=== PATIENT | male | born 1975 | race Two or more races ===

== ENCOUNTER 2020-03-19 15:00 | Emergency (ER) | payer MEDICAID ==
[~2020-03-19 15:00] MED LIST: ACET-929 PO; AMLO5TAB15; ASPI-543 PO; BUTA-91 PO; ERGO2000 PO; FENO145T27 OR; GABA300C10 PO; GEMF600T7 PO; IBUP800T24; INSLANTI SC; INSLISPI SC; LISI-711 PO; METF-372 PO; NITR0.4S29 SL; OMEP20CA74 PO; OXYC325T14 PO; SEMA2INJ BC; SIMV20TA90 PO; TAMS1CAP25 PO; TRAM50TA2 PO
[2020-03-19] MEDS ORDERED: SODIUM CHLORIDE 0.9% 1,000 ML IVB ONE (15:45)
[2020-03-19 16:20] LABS: Basophils # (auto) 0 10 ^3/uL (0-0.2); Basophils % (auto) 0.2 % (0.0-2.0); Eosinophils # (auto) 0.1 10 ^3/uL (0-0.8); Eosinophils % (auto) 0.8 % (0.0-7.0); Hematocrit 43.9 % (41.0-53.0); Hemoglobin 14.5 g/dL (13.5-17.5); Lymphocytes # (auto) 1.9 10 ^3/uL (0.4-5.4); Lymphocytes % (auto) 26.7 % (10.0-50.0); Mean Corpuscular Hemoglobin 29.6 pg (28.0-32.0); Mean Corpuscular Hgb Conc. 32.9 g/dL (32.0-36.0); Mean Corpuscular Volume 89.8 fL (80.0-100.0); Monocytes # (auto) 0.6 10 ^3/uL (0-1.3); Neutrophils # (auto) 4.5 10 ^3/uL (1.6-8.6); Neutrophils % (auto) 63.3 % (37.0-80.0); Platelet Count (auto) 202 10^3/uL (140-450); Red Blood Cells 4.89 10^6/uL (4.5-5.90); Red Cell Distribution Width 15.2 % (11.8-14.3); White Blood Cell 7.1 10^3/uL (4.4-10.8)
[2020-03-19 16:32] LABS: Albumin 3.6 g/dL (3.4-5.0); Anion Gap 5 (5-15); Blood Urea Nitrogen 8 mg/dL (7-18); Carbon Dioxide 28 mmol/L (21-32); Chloride 107 mmol/L (98-107); Glucose 91 mg/dL (74-106); Lipase 116 U/L (73-393); Potassium 3.8 mmol/L (3.5-5.1); Sodium 140 mmol/L (136-145)
[2020-03-19 16:37] LABS: Alanine Aminotransferase 21 U/L (16-61); Alkaline Phosphatase 117 U/L (45-117); Aspartate Aminotransferase 12 U/L (15-37); BUN/Creatinine Ratio 12.1; Bilirubin, Total 0.2 mg/dL (0.2-1.0); GFR African American 169 mL/min; GFR Non-African American 140 mL/min; Total Protein 7.1 g/dL (6.4-8.2)
[2020-03-19 16:53] VITALS: BP 125/87
[2020-03-19] MEDS ORDERED: HYDROcodone-ACET 10/325MG TAB PO ONE (17:15)
== END 2020-03-19 17:10 | disposition home or self-care (01) ==
LOC: ER 15:00
DX: N20.0 Calculus of kidney (principal); J45.909 Unspecified asthma, uncomplicated; E11.9 Type 2 diabetes mellitus without complications; K21.9 Gastro-esophageal reflux disease without esophagitis; E78.5 Hyperlipidemia, unspecified; I10 Essential (primary) hypertension; I25.2 Old myocardial infarction
CPT/HCPCS: 36415; 74176; 80053; 83690; 84484; 85025; 96360; 99284; J7030

== ENCOUNTER 2022-05-29 15:44 | Inpatient (IN) | payer MEDICAID ==
[~2022-05-29] VITALS: Ht 167.6 cm; Wt 92.2 kg
[~2022-05-29 15:44] MED LIST changes: +AMLO-489; -AMLO5TAB15; +GEMF-19 PO; -GEMF600T7 PO; -IBUP800T24; +IBUP800T27; +SIMV20TA2 PO; -SIMV20TA90 PO
[2022-05-29] MEDS ORDERED: SODIUM CHLORIDE 0.9% 1,000 ML IV ONE (16:00)
[2022-05-29 16:52] LABS: Basophils # (auto) 0 10 ^3/uL (0-0.2); Basophils % (auto) 0.4 % (0.0-2.0); Eosinophils # (auto) 0 10 ^3/uL (0-0.8); Eosinophils % (auto) 0.8 % (0.0-7.0); Hemoglobin 11.7 g/dL (13.5-17.5); Lymphocytes # (auto) 1.4 10 ^3/uL (0.4-5.4); Lymphocytes % (auto) 27.1 % (10.0-50.0); Mean Corpuscular Hemoglobin 30.1 pg (28.0-32.0); Mean Corpuscular Hgb Conc. 31.6 g/dL (32.0-36.0); Mean Corpuscular Volume 95.5 fL (80.0-100.0); Monocytes # (auto) 0.4 10 ^3/uL (0-1.3); Monocytes % (auto) 7.4 % (0.0-12.0); Neutrophils # (auto) 3.3 10 ^3/uL (1.6-8.6); Neutrophils % (auto) 64.3 % (37.0-80.0); Nucleated Red Blood Cells % 0.1 %; Red Blood Cells 3.88 10^6/uL (4.5-5.90); Red Cell Distribution Width 15.4 % (11.8-14.3); White Blood Cell 5.1 10^3/uL (4.4-10.8)
[2022-05-29 17:12] LABS: Albumin 3.6 g/dL (3.4-5.0); Calcium 8.9 mg/dL (8.5-10.1); Potassium 4.1 mmol/L (3.5-5.1)
[2022-05-29 17:15] LABS: Bilirubin, Total 0.2 mg/dL (0.2-1.0); Total Protein 6.2 g/dL (6.4-8.2)
[2022-05-29] MEDS ORDERED: ACETAMINOPHEN 325 MG TAB PO PRN (21:00)
[2022-05-29] MEDS ORDERED: TEMAZEPAM 15 MG CAP PO PRN (21:00)
[2022-05-29] MEDS ORDERED: LORazepam 0.5 MG TAB PO PRN (21:00)
[2022-05-29] MEDS ORDERED: MAALOX PLUS or MAALOX 30 ML PO PRN (21:00)
[2022-05-29] MEDS ORDERED: DOCUSATE SOD 100 MG CAP PO PRN (21:00)
[2022-05-29 21:18] LABS: Urine Bacteria NONE SEEN /hpf (None Seen); Urine Blood Negative /uL (Negative); Urine Hyaline Cast FEW /lpf (0 - 2); Urine Mucus FEW (None Seen); Urine Specific Gravity 1.018 (1.001-1.035); Urine WBC 2 /hpf (0 - 3)
[2022-05-29] MEDS: HYDROcodone-ACET 5/325MG TAB PO PRN (21:36)
[2022-05-30] MEDS: HYDROcodone-ACET 5/325MG TAB PO PRN ×3 (02:29→14:09)
[2022-05-30] MEDS ORDERED: levETIRAcetam 500 MG/5ML INJ IV ONE (05:40)
[2022-05-30] MEDS: SODIUM CHLORIDE 0.9% 1,000 ML IV SCH ×2 (05:46→13:59)
[2022-05-30] MEDS: MORPHINE SULFATE INJ 2 MG/ml SYRG IV PRN ×3 (05:52→20:51)
[2022-05-30 07:31] LABS: BUN/Creatinine Ratio 23.5; Calcium 8.7 mg/dL (8.5-10.1); Potassium 4.2 mmol/L (3.5-5.1)
[2022-05-30 07:33] LABS: Basophils # (auto) 0 10 ^3/uL (0-0.2); Basophils % (auto) 0.7 % (0.0-2.0); Eosinophils # (auto) 0.1 10 ^3/uL (0-0.8); Eosinophils % (auto) 1.4 % (0.0-7.0); Hematocrit 35.1 % (41.0-53.0); Hemoglobin 11.5 g/dL (13.5-17.5); Lymphocytes # (auto) 1.7 10 ^3/uL (0.4-5.4); Mean Corpuscular Hemoglobin 31.3 pg (28.0-32.0); Mean Corpuscular Hgb Conc. 32.8 g/dL (32.0-36.0); Mean Corpuscular Volume 95.3 fL (80.0-100.0); Monocytes # (auto) 0.4 10 ^3/uL (0-1.3); Monocytes % (auto) 8.8 % (0.0-12.0); Neutrophils # (auto) 2.2 10 ^3/uL (1.6-8.6); Neutrophils % (auto) 50.1 % (37.0-80.0); Nucleated Red Blood Cells % 0.1 %; Red Blood Cells 3.69 10^6/uL (4.5-5.90); Red Cell Distribution Width 15.1 % (11.8-14.3); White Blood Cell 4.3 10^3/uL (4.4-10.8)
[2022-05-30] MEDS ORDERED: DEXTROSE (50%) 50ML SYRG IV ONE (10:30)
[2022-05-30] MEDS ORDERED: DEXTROSE (50%) 50ML SYRG IV PRN (10:45)
[2022-05-30] MEDS ORDERED: LORazepam 2MG/ML-1ML VIAL IV PRN (11:30)
[2022-05-30 12:05] LABS: Cholesterol 153 mg/dL (< 200); HDL Cholesterol 72 mg/dL (40-59); LDL Cholesterol 62 mg/dL (< 100); Triglycerides 156 mg/dL (< 150)
[2022-05-30] MEDS: InsuLIN REG 1unit/0.01ml Soln (100units/ml) SC SCH ×3 (12:50→22:00)
[2022-05-30] MEDS: ACCU-CHEK COMFORT CURVE STRIP VI SCH ×3 (12:51→22:07)
[2022-05-30] MEDS ORDERED: GABAPENTIN 300 MG CAP PO SCH (14:00)
[2022-05-30] MEDS ORDERED: ONDANSETRON ODT 4 MG TAB PO PRN (15:15)
[2022-05-30] MEDS ORDERED: HYDROcodone-ACET 10/325MG TAB PO PRN (15:15)
[2022-05-30] MEDS: METOCLOPRAMIDE HCL 5MG/ml INJ 2ml VIAL IV PRN (15:21)
[2022-05-30] MEDS: INSULIN LANTUS (GLARGINE) 1 /0.01ml (100units/ml) SC SCH (17:35)
[2022-05-30] MEDS: GABAPENTIN 300 MG CAP PO SCH ×2 (17:36→22:07)
[2022-05-30 19:14] LABS: INR 0.99 (0.9-1.15); Partial Thromboplastin Time 27.6 sec (24.6-33.4)
[2022-05-30] MEDS: HYDROcodone-ACET 10/325MG TAB PO PRN (20:52)
[2022-05-30 22:00] VITALS: BP 135/74
[2022-05-30] MEDS: VENLAFAXINE HCL 37.5mg XR cap PO SCH (22:06)
[2022-05-31 00:04] VITALS: BP 135/74
[2022-05-31] MEDS ORDERED: PANT40TA2 PO (00:45)
[2022-05-31 05:00] VITALS: BP 122/71
[2022-05-31] MEDS: GABAPENTIN 300 MG CAP PO SCH ×3 (05:31→22:05)
[2022-05-31] MEDS: SODIUM CHLORIDE 0.9% 1,000 ML IV SCH ×2 (05:31→23:53)
[2022-05-31] MEDS: ACCU-CHEK COMFORT CURVE STRIP VI SCH ×4 (06:43→22:01)
[2022-05-31] MEDS: InsuLIN REG 1unit/0.01ml Soln (100units/ml) SC SCH ×4 (06:44→22:22)
[2022-05-31] MEDS: MORPHINE SULFATE INJ 2 MG/ml SYRG IV PRN ×2 (08:45→13:48)
[2022-05-31 09:00] VITALS: BP 130/69
[2022-05-31] MEDS: ASPirin 81 mg TAB PO SCH (09:06)
[2022-05-31] MEDS: INSULIN LANTUS (GLARGINE) 1 /0.01ml (100units/ml) SC SCH (09:08)
[2022-05-31] MEDS ORDERED: INSULIN LANTUS (GLARGINE) 1 /0.01ml (100units/ml) SC SCH (10:00)
[2022-05-31] MEDS: HYDROcodone-ACET 10/325MG TAB PO PRN (10:45)
[2022-05-31 11:34] LABS: Basophils # (auto) 0 10 ^3/uL (0-0.2); Basophils % (auto) 0.3 % (0.0-2.0); Eosinophils # (auto) 0 10 ^3/uL (0-0.8); Eosinophils % (auto) 0.6 % (0.0-7.0); Hematocrit 32.8 % (41.0-53.0); Hemoglobin 10.5 g/dL (13.5-17.5); Lymphocytes # (auto) 1.4 10 ^3/uL (0.4-5.4); Lymphocytes % (auto) 30.3 % (10.0-50.0); Mean Corpuscular Hemoglobin 30.7 pg (28.0-32.0); Mean Corpuscular Hgb Conc. 32.2 g/dL (32.0-36.0); Mean Corpuscular Volume 95.4 fL (80.0-100.0); Monocytes # (auto) 0.5 10 ^3/uL (0-1.3); Monocytes % (auto) 9.8 % (0.0-12.0); Neutrophils # (auto) 2.8 10 ^3/uL (1.6-8.6); Nucleated Red Blood Cells % 0.2 %; Red Blood Cells 3.43 10^6/uL (4.5-5.90); White Blood Cell 4.8 10^3/uL (4.4-10.8)
[2022-05-31 11:40] LABS: Albumin 3.3 g/dL (3.4-5.0); Calcium 8.6 mg/dL (8.5-10.1)
[2022-05-31 11:45] LABS: BUN/Creatinine Ratio 14.6; Bilirubin, Total 0.3 mg/dL (0.2-1.0); Total Protein 5.7 g/dL (6.4-8.2)
[2022-05-31 13:00] VITALS: BP 133/90
[2022-05-31] MEDS: METOCLOPRAMIDE HCL 5MG/ml INJ 2ml VIAL IV PRN (13:48)
[2022-05-31] MEDS ORDERED: LIDOCAINE 1% (LOCAL ANESTH.) PF 5ml SDV ID ONE (17:15)
[2022-05-31] MEDS: ONDANSETRON HCL 4 MG/2 ML VIAL IV PRN (18:51)
[2022-05-31] MEDS: traMADol HCL 50 MG TAB PO PRN (18:51)
[2022-05-31 22:00] VITALS: BP 136/81
[2022-05-31] MEDS: SODIUM CHLOR 0.9% PF (SALINE LOCK) 10ML VIAL/SYR IV SCH (22:01)
[2022-05-31] MEDS: VENLAFAXINE HCL 37.5mg XR cap PO SCH (22:05)
[2022-06-01 05:00] VITALS: BP 128/86
[2022-06-01] MEDS: GABAPENTIN 300 MG CAP PO SCH ×2 (06:42→13:34)
[2022-06-01] MEDS: InsuLIN REG 1unit/0.01ml Soln (100units/ml) SC SCH ×3 (06:48→17:56)
[2022-06-01] MEDS: ACCU-CHEK COMFORT CURVE STRIP VI SCH ×3 (06:48→17:56)
[2022-06-01 07:24] LABS: Basophils # (auto) 0 10 ^3/uL (0-0.2); Basophils % (auto) 0.4 % (0.0-2.0); Eosinophils # (auto) 0.1 10 ^3/uL (0-0.8); Eosinophils % (auto) 1.3 % (0.0-7.0); Hemoglobin 10.9 g/dL (13.5-17.5); Lymphocytes # (auto) 1.6 10 ^3/uL (0.4-5.4); Lymphocytes % (auto) 32.4 % (10.0-50.0); Mean Corpuscular Hemoglobin 31.3 pg (28.0-32.0); Mean Corpuscular Hgb Conc. 33.1 g/dL (32.0-36.0); Mean Corpuscular Volume 94.4 fL (80.0-100.0); Monocytes # (auto) 0.5 10 ^3/uL (0-1.3); Monocytes % (auto) 10.5 % (0.0-12.0); Neutrophils # (auto) 2.7 10 ^3/uL (1.6-8.6); Neutrophils % (auto) 55.4 % (37.0-80.0); Nucleated Red Blood Cells % 0.1 %; Red Cell Distribution Width 15.2 % (11.8-14.3); White Blood Cell 4.9 10^3/uL (4.4-10.8)
[2022-06-01 07:40] LABS: Albumin 3.3 g/dL (3.4-5.0); Calcium 8.7 mg/dL (8.5-10.1); Potassium 4.4 mmol/L (3.5-5.1)
[2022-06-01 07:46] LABS: BUN/Creatinine Ratio 13.5; Bilirubin, Total 0.3 mg/dL (0.2-1.0); Total Protein 5.5 g/dL (6.4-8.2)
[2022-06-01 09:00] VITALS: BP 137/87
[2022-06-01] MEDS: ONDANSETRON HCL 4 MG/2 ML VIAL IV PRN ×2 (09:01→13:36)
[2022-06-01] MEDS: HYDROcodone-ACET 10/325MG TAB PO PRN (09:01)
[2022-06-01] MEDS: ASPirin 81 mg TAB PO SCH (09:59)
[2022-06-01] MEDS: MORPHINE SULFATE INJ 2 MG/ml SYRG IV PRN (09:59)
[2022-06-01] MEDS: INSULIN LANTUS (GLARGINE) 1 /0.01ml (100units/ml) SC SCH (10:00)
[2022-06-01] MEDS: SODIUM CHLOR 0.9% PF (SALINE LOCK) 10ML VIAL/SYR IV SCH (10:00)
[2022-06-01 13:00] VITALS: BP 131/91
[2022-06-01] MEDS ORDERED: PANTOPRAZOLE 40 MG TAB PO ONE (13:15)
[2022-06-01] MEDS: traMADol HCL 50 MG TAB PO PRN (13:35)
[2022-06-01] MEDS: SODIUM CHLORIDE 0.9% 1,000 ML IV SCH (15:40)
[2022-06-01 16:48] VITALS: BP 151/100
[2022-06-02] MEDS ORDERED: PANTOPRAZOLE 40 MG TAB PO SCH (10:00)
== END 2022-06-01 18:16 | disposition home or self-care (01) | DRG 206 ==
LOC: ER 15:44 → OVERFLOW 21:05 → WEST WING 05-30 21:33
PROVIDERS: ADMIT Hospitalist; ATTEND Student in an Organized Health Care Education/Training Program
PROC: 05HY33Z Insertion of Infusion Device into Upper Vein, Percutaneous Approach (ICD-10-PCS; principal; 2022-05-31)
PROC: B54NZZA Ultrasonography of Left Upper Extremity Veins, Guidance (ICD-10-PCS; 2022-05-31)
DX: T82.514A Breakdown (mechanical) of infusion catheter, initial encounter (principal); E44.0 Moderate protein-calorie malnutrition; E11.43 Type 2 diabetes mellitus with diabetic autonomic (poly)neuropathy; K31.84 Gastroparesis; E87.1 Hypo-osmolality and hyponatremia; I69.354 Hemiplegia and hemiparesis following cerebral infarction affecting left non-dominant side; N20.0 Calculus of kidney; G40.909 Epilepsy, unspecified, not intractable, without status epilepticus; Z20.822 Contact with and (suspected) exposure to COVID-19; F17.200 Nicotine dependence, unspecified, uncomplicated; Y71.2 Prosthetic and other implants, materials and accessory cardiovascular devices associated with adverse incidents; Z68.28 Body mass index [BMI] 28.0-28.9, adult; I25.2 Old myocardial infarction; Y92.89 Other specified places as the place of occurrence of the external cause; Z79.899 Other long term (current) drug therapy; Z87.11 Personal history of peptic ulcer disease; Z93.1 Gastrostomy status; Z83.3 Family history of diabetes mellitus; Z82.49 Family history of ischemic heart disease and other diseases of the circulatory system; Z79.82 Long term (current) use of aspirin; Z82.3 Family history of stroke; I25.10 Atherosclerotic heart disease of native coronary artery without angina pectoris; I10 Essential (primary) hypertension; J45.909 Unspecified asthma, uncomplicated; E78.5 Hyperlipidemia, unspecified
CPT/HCPCS: 36415; 36569; 70450; 74176; 80048; 80053; 80061; 81001; 82962; 83690; 84484; 85025; 85610; 85730; 87426; 93005; 95819; 96360; G0378; J1815; J2405; J7060; Q0162

== ENCOUNTER 2022-07-24 10:24 | Emergency (ER) | payer MEDICAID ==
[~2022-07-24] VITALS: Ht 167.6 cm; Wt 90.0 kg
[~2022-07-24 10:24] MED LIST changes: +FURO1TAB31 PO; +LEVE100S9 GT; +OCTR50IN IJ; +PANT40TA2 PO; +VENL75CA3 PO; +[UNRECOGNIZED DRUG - CODE] IV
[2022-07-24 10:54] VITALS: BP 129/66
== END 2022-07-24 17:01 | disposition home or self-care (01) ==
LOC: ER 10:24 → EDBD 10:24 → ER 17:01
DX: R10.12 Left upper quadrant pain (principal); I10 Essential (primary) hypertension; I25.2 Old myocardial infarction; E11.9 Type 2 diabetes mellitus without complications; E78.5 Hyperlipidemia, unspecified; K21.9 Gastro-esophageal reflux disease without esophagitis; J45.909 Unspecified asthma, uncomplicated; Z79.4 Long term (current) use of insulin; Z79.1 Long term (current) use of non-steroidal anti-inflammatories (NSAID); Z79.899 Other long term (current) drug therapy; Z79.82 Long term (current) use of aspirin

== ENCOUNTER 2022-08-21 15:15 | Emergency (ER) | payer MEDICAID ==
[~2022-08-21] VITALS: Ht 167.6 cm; Wt 98.0 kg
[2022-08-21 15:32] VITALS: BP 125/75
[2022-08-21 16:34] LABS: Basophils # (auto) 0 10 ^3/uL (0-0.2); Basophils % (auto) 0.2 % (0.0-2.0); Eosinophils # (auto) 0 10 ^3/uL (0-0.8); Eosinophils % (auto) 0.3 % (0.0-7.0); Hemoglobin 11.5 g/dL (13.5-17.5); Lymphocytes # (auto) 1.4 10 ^3/uL (0.4-5.4); Lymphocytes % (auto) 15.4 % (10.0-50.0); Mean Corpuscular Hemoglobin 27.7 pg (28.0-32.0); Mean Corpuscular Hgb Conc. 31.9 g/dL (32.0-36.0); Mean Corpuscular Volume 86.8 fL (80.0-100.0); Monocytes # (auto) 0.7 10 ^3/uL (0-1.3); Monocytes % (auto) 8.3 % (0.0-12.0); Neutrophils # (auto) 6.7 10 ^3/uL (1.6-8.6); Neutrophils % (auto) 75.8 % (37.0-80.0); Red Blood Cells 4.14 10^6/uL (4.5-5.90); Red Cell Distribution Width 14.7 % (11.8-14.3); White Blood Cell 8.9 10^3/uL (4.4-10.8)
[2022-08-21 16:50] LABS: Albumin 4.1 g/dL (3.4-5.0); Calcium 8.9 mg/dL (8.5-10.1); Potassium 4.1 mmol/L (3.5-5.1)
[2022-08-21 16:54] LABS: BUN/Creatinine Ratio 17.9 (10.0-20.0); Bilirubin, Total 0.2 mg/dL (0.2-1.0); INR 0.94 (0.9-1.15); Partial Thromboplastin Time 25.5 sec (24.6-33.4); Total Protein 6.8 g/dL (6.4-8.2)
== END 2022-08-21 19:05 | disposition left against medical advice (07) ==
LOC: ER 15:15
DX: T82.898A Other specified complication of vascular prosthetic devices, implants and grafts, initial encounter (principal); R56.9 Unspecified convulsions; J45.909 Unspecified asthma, uncomplicated; E11.9 Type 2 diabetes mellitus without complications; K21.9 Gastro-esophageal reflux disease without esophagitis; E78.5 Hyperlipidemia, unspecified; I10 Essential (primary) hypertension; Z90.49 Acquired absence of other specified parts of digestive tract; Z79.01 Long term (current) use of anticoagulants; Z45.2 Encounter for adjustment and management of vascular access device
CPT/HCPCS: 36415; 71046; 80053; 85025; 85610; 85730

== ENCOUNTER 2022-08-22 09:27 | Emergency (ER) | payer MEDICAID ==
[~2022-08-22] VITALS: Ht 167.6 cm; Wt 98.7 kg
[2022-08-22] MEDS ORDERED: LIDOCAINE 1% (LOCAL ANESTH.) PF 5ml SDV ID ONE ×2 (11:00→11:35)
[2022-08-22] MEDS ORDERED: HYDROcodone-ACET 10/325MG TAB PO ONE (11:30)
[2022-08-22 11:36] VITALS: BP 130/85
[2022-08-22] MEDS ORDERED: SODIUM CHLOR 0.9% PF (SALINE LOCK) 10ML VIAL/SYR IV SCH (22:00)
== END 2022-08-22 11:38 | disposition home or self-care (01) ==
LOC: ER 09:27
DX: Z45.2 Encounter for adjustment and management of vascular access device (principal); J45.909 Unspecified asthma, uncomplicated; E11.9 Type 2 diabetes mellitus without complications; K21.9 Gastro-esophageal reflux disease without esophagitis; E78.5 Hyperlipidemia, unspecified; I10 Essential (primary) hypertension; I25.2 Old myocardial infarction; Z90.49 Acquired absence of other specified parts of digestive tract; Z79.1 Long term (current) use of non-steroidal anti-inflammatories (NSAID); Z79.82 Long term (current) use of aspirin; Z79.4 Long term (current) use of insulin; Z79.899 Other long term (current) drug therapy
CPT/HCPCS: 36569; 99285; C1751; J7050

== ENCOUNTER 2022-11-16 09:59 | Emergency (ER) | payer MEDICAID ==
[~2022-11-16] VITALS: Ht 167.6 cm; Wt 93.8 kg
[~2022-11-16 09:59] MED LIST changes: -AMLO-489; +AMLO1TAB22; +GABA-1250 PO; -GABA300C10 PO; -GEMF-19 PO; +GEMF-66 PO; +IBUP-1456; -IBUP800T27; -LEVE100S9 GT; +LEVE5SOL GT; +SIMV-270 PO; -SIMV20TA2 PO
[2022-11-16] MEDS ORDERED: ASPirin 325 MG TAB PO ONE (10:30)
[2022-11-16 11:03] LABS: Urine Bacteria NONE SEEN /hpf (None Seen); Urine Blood Negative /uL (Negative); Urine Hyaline Cast MANY /lpf (0 - 2); Urine Mucus FEW (None Seen); Urine Specific Gravity 1.027 (1.001-1.035); Urine WBC 1 /hpf (0 - 3)
[2022-11-16 11:16] LABS: Basophils # (auto) 0 10 ^3/uL (0-0.2); Eosinophils # (auto) 0.1 10 ^3/uL (0-0.8); Lymphocytes # (auto) 1.2 10 ^3/uL (0.4-5.4); Mean Corpuscular Hemoglobin 25.8 pg (28.0-32.0); Monocytes # (auto) 0.4 10 ^3/uL (0-1.3); Neutrophils # (auto) 3.7 10 ^3/uL (1.6-8.6)
[2022-11-16 11:17] LABS: Basophils % (auto) 0.3 % (0.0-2.0); Eosinophils % (auto) 1.1 % (0.0-7.0); Hemoglobin 10.6 g/dL (13.5-17.5); Mean Corpuscular Hgb Conc. 31.1 g/dL (32.0-36.0); Mean Corpuscular Volume 83.2 fL (80.0-100.0); Monocytes % (auto) 7.9 % (0.0-12.0); Neutrophils % (auto) 68.7 % (37.0-80.0); Nucleated Red Blood Cells % 0.3 %; Red Blood Cells 4.09 10^6/uL (4.5-5.90); White Blood Cell 5.3 10^3/uL (4.4-10.8)
[2022-11-16 11:37] LABS: Albumin 4.4 g/dL (3.4-5.0); Potassium 4.4 mmol/L (3.5-5.1)
[2022-11-16 11:42] LABS: BUN/Creatinine Ratio 16.1 (10.0-20.0); Bilirubin, Total 0.2 mg/dL (0.2-1.0); Total Protein 6.9 g/dL (6.4-8.2)
[2022-11-16 12:49] LABS: INR 0.98 (0.9-1.15); Partial Thromboplastin Time 27.9 SEC (24.5-34.5)
[2022-11-16] MEDS ORDERED: HYDROcodone-ACET 5/325MG TAB PO ONE (13:45)
[2022-11-16] MEDS ORDERED: LIDOCAINE 1% (LOCAL ANESTH.) PF 5ml SDV ID ONE (14:30)
[2022-11-16] MEDS: SODIUM CHLOR 0.9% PF (SALINE LOCK) 10ML VIAL/SYR IV SCH ×2 (15:05→18:09)
[2022-11-16 18:14] VITALS: BP 114/73
== END 2022-11-16 18:17 | disposition home or self-care (01) ==
LOC: ER 09:59
DX: R56.9 Unspecified convulsions (principal); I10 Essential (primary) hypertension; E10.8 Type 1 diabetes mellitus with unspecified complications; K21.9 Gastro-esophageal reflux disease without esophagitis; E78.5 Hyperlipidemia, unspecified; J45.909 Unspecified asthma, uncomplicated; Z90.49 Acquired absence of other specified parts of digestive tract; Z45.2 Encounter for adjustment and management of vascular access device; Z79.01 Long term (current) use of anticoagulants
CPT/HCPCS: 36415; 36569; 70450; 71045; 74176; 80053; 81001; 82550; 83605; 83690; 83735; 84484; 85025; 85610; 85730; 93005; 96365; 96366; 96375; 99285; C1751; J1953; J7050; J7060

== ENCOUNTER 2022-12-16 22:15 | Emergency (ER) | payer MEDICAID ==
[~2022-12-16] VITALS: Ht 167.6 cm; Wt 96.3 kg
[~2022-12-16 22:15] MED LIST changes: -ASPI-543 PO; +LISI-707 PO; -LISI-711 PO; -TRAM50TA2 PO
[2022-12-17 03:18] VITALS: TEMP 97.8
[2022-12-17 05:46] VITALS: BP 142/70; PULSE 91; RESP 16; O2SAT 100
== END 2022-12-17 07:03 | disposition left against medical advice (07) ==
LOC: ER 22:15
DX: T82.594D Other mechanical complication of infusion catheter, subsequent encounter (principal); Z53.21 Procedure and treatment not carried out due to patient leaving prior to being seen by health care provider

== ENCOUNTER 2023-01-14 03:51 | Emergency (ER) | payer MEDICAID ==
[~2023-01-14] VITALS: Ht 167.6 cm; Wt 91.6 kg
[2023-01-14 04:07] VITALS: BP 131/78; PULSE 90; RESP 16; O2SAT 100
[2023-01-14 04:53] LABS: Basophils # (auto) 0 10 ^3/uL (0-0.2); Basophils % (auto) 0.2 % (0.0-2.0); Eosinophils # (auto) 0 10 ^3/uL (0-0.8); Hemoglobin 9.5 g/dL (13.5-17.5); Mean Corpuscular Hemoglobin 25.2 pg (28.0-32.0); Nucleated Red Blood Cells % 0.1 %; Red Cell Distribution Width 18.7 % (11.8-14.3)
[2023-01-14 04:56] LABS: Eosinophils % (auto) 0.3 % (0.0-7.0); Hematocrit 30.8 % (41.0-53.0); Lymphocytes # (auto) 2.5 10 ^3/uL (0.4-5.4); Lymphocytes % (auto) 33.7 % (10.0-50.0); Mean Corpuscular Hgb Conc. 30.9 g/dL (32.0-36.0); Mean Corpuscular Volume 81.7 fL (80.0-100.0); Monocytes # (auto) 0.5 10 ^3/uL (0-1.3); Monocytes % (auto) 7.2 % (0.0-12.0); Neutrophils # (auto) 4.4 10 ^3/uL (1.6-8.6); Neutrophils % (auto) 58.6 % (37.0-80.0); Red Blood Cells 3.78 10^6/uL (4.5-5.90); White Blood Cell 7.5 10^3/uL (4.4-10.8)
[2023-01-14 05:00] LABS: Potassium 3.6 mmol/L (3.5-5.1)
[2023-01-14 05:10] LABS: Albumin 3.5 g/dL (3.4-5.0); BUN/Creatinine Ratio 17.5 (10.0-20.0); Bilirubin, Total 0.2 mg/dL (0.2-1.0); Calcium 8.6 mg/dL (8.5-10.1); Total Protein 6.5 g/dL (6.4-8.2)
== END 2023-01-14 07:45 | disposition left against medical advice (07) ==
LOC: ER 03:51
DX: E16.2 Hypoglycemia, unspecified (principal); Z53.21 Procedure and treatment not carried out due to patient leaving prior to being seen by health care provider
CPT/HCPCS: 36415; 80053; 85025

== ENCOUNTER 2023-01-15 14:55 | Inpatient (IN) | payer MEDICAID ==
[~2023-01-15] VITALS: Ht 167.6 cm; Wt 104.9 kg
[2023-01-15 15:59] LABS: Basophils # (auto) 0 10 ^3/uL (0-0.2); Eosinophils # (auto) 0 10 ^3/uL (0-0.8); Eosinophils % (auto) 0.1 % (0.0-7.0); Hemoglobin 10.1 g/dL (13.5-17.5); Neutrophils # (auto) 5.6 10 ^3/uL (1.6-8.6); Nucleated Red Blood Cells % 0.1 %; White Blood Cell 8.9 10^3/uL (4.4-10.8)
[2023-01-15 16:01] LABS: Basophils % (auto) 0.2 % (0.0-2.0); Hematocrit 32.7 % (41.0-53.0); Lymphocytes # (auto) 2.7 10 ^3/uL (0.4-5.4); Lymphocytes % (auto) 30.1 % (10.0-50.0); Mean Corpuscular Hemoglobin 25.1 pg (28.0-32.0); Mean Corpuscular Hgb Conc. 30.7 g/dL (32.0-36.0); Mean Corpuscular Volume 81.5 fL (80.0-100.0); Monocytes # (auto) 0.6 10 ^3/uL (0-1.3); Monocytes % (auto) 7.3 % (0.0-12.0); Neutrophils % (auto) 62.3 % (37.0-80.0); Red Blood Cells 4.01 10^6/uL (4.5-5.90)
[2023-01-15 16:12] LABS: Calcium 9.1 mg/dL (8.7-10.4); Potassium 3.7 mmol/L (3.5-5.1)
[2023-01-15 16:17] LABS: BUN/Creatinine Ratio 18.6 (10.0-20.0); Bilirubin, Total 0.2 mg/dL (0.2-1.0); Total Protein 6.9 g/dL (6.4-8.2)
[2023-01-15] MEDS ORDERED: MORPHINE SULFATE 4 MG/ML SYR/VIAL IV ONE (16:30)
[2023-01-15 16:43] LABS: Urine Bacteria NONE SEEN /hpf (None Seen); Urine Blood Negative /uL (Negative); Urine Clarity Clear (Clear); Urine Color Yellow (Yellow); Urine Hyaline Cast FEW /lpf (0 - 2); Urine Protein, UAD Negative (Negative); Urine Specific Gravity 1.023 (1.001-1.035); Urine Urobilinogen Normal (Negative); Urine WBC <1 /hpf (0 - 3); Urine pH 6.5 (5.0-8.0)
[2023-01-15] MEDS ORDERED: ONDANSETRON HCL 4 MG/2 ML VIAL IV ONE (17:15)
[2023-01-15] MEDS ORDERED: KETOROLAC TROMETH 30 MG/ML 1ML VIAL IV ONE (17:15)
[2023-01-15] MEDS ORDERED: D5W/LACTATED RINGERS 1,000 ML IV ONE (17:15)
[2023-01-15] MEDS ORDERED: D5W/SOD CHLO 0.9% 1,000 ML IV ONE (17:15)
[2023-01-15] MEDS ORDERED: ACETAMINOPHEN 325 MG TAB PO PRN (18:15)
[2023-01-15] MEDS ORDERED: DEXTROSE (50%) 50ML SYRG IV PRN (18:15)
[2023-01-15] MEDS ORDERED: NITROGLYCERIN 0.4 MG SL TAB SL PRN (18:15)
[2023-01-15] MEDS ORDERED: D5W/SOD CHLO 0.9% 1,000 ML IV SCH (18:30)
[2023-01-15 18:48] LABS: Cholesterol 179 mg/dL (< 200); HDL Cholesterol 70 mg/dL (40-59); LDL Cholesterol 91 mg/dL (< 100); Triglycerides 108 mg/dL (< 150)
[2023-01-15] MEDS ORDERED: METOPROLOL TARTRATE 25 MG TAB PO ONE (19:00)
[2023-01-15] MEDS ORDERED: ALBUTEROL SULF 2.5 MG/0.5ML(0.5%) NEB SOLN NEB PRN (19:30)
[2023-01-15 19:38] LABS: Cannabinoid Screen, Urine NEGATIVE (NEGATIVE)
[2023-01-15 19:49] LABS: Alcohol, Urine < 3.0 mg/dL (0-10); Amphetamine Screen, Urine NEGATIVE (NEGATIVE); Barbiturate Scree,Urine NEGATIVE (NEGATIVE); Benzodiazephine Screen, Urine NEGATIVE (NEGATIVE); Cocaine Screen, Urine NEGATIVE (NEGATIVE); Opiate Scree,Urine POSITIVE (NEGATIVE); Phencyclidine Screen, Urine NEGATIVE (NEGATIVE)
[2023-01-15 19:53] VITALS: BP 118/54; PULSE 57; RESP 18; TEMP 98.4; O2SAT 100
[2023-01-15 20:28] VITALS: O2SAT 98
[2023-01-15] MEDS: InsuLIN REG 1unit/0.01ml Soln (100units/ml) SC SCH (21:25)
[2023-01-15] MEDS: ACCU-CHEK COMFORT CURVE STRIP VI SCH (21:25)
[2023-01-15 21:29] VITALS: BP 141/105; PULSE 103; RESP 18; TEMP 98.7; O2SAT 98
[2023-01-15] MEDS: PRAVASTATIN SODIUM 20 MG TAB PO SCH (21:55)
[2023-01-15] MEDS: HYDROcodone-ACET 5/325MG TAB PO PRN (21:55)
[2023-01-15] MEDS: GABAPENTIN 300 MG CAP PO SCH (21:57)
[2023-01-15] MEDS: FUROSEMIDE 40 MG TAB PO SCH (21:57)
[2023-01-15] MEDS: VENLAFAXINE HCL 37.5mg XR cap PO SCH (21:57)
[2023-01-15] MEDS: amLODIPine BESYLATE 5 MG TAB PO SCH (21:57)
[2023-01-15] MEDS ORDERED: METOPROLOL TARTRATE 25 MG TAB PO SCH (22:00)
[2023-01-16] MEDS ORDERED: KETOROLAC TROMETH 30 MG/ML 1ML VIAL IV ONE (01:15)
[2023-01-16] MEDS ORDERED: HYDROmorphone HCL 2 MG TAB PO ONE (04:30)
[2023-01-16 06:29] LABS: Basophils # (auto) 0.1 10 ^3/uL (0-0.2); Basophils % (auto) 0.8 % (0.0-2.0); Eosinophils # (auto) 0 10 ^3/uL (0-0.8); Eosinophils % (auto) 0.4 % (0.0-7.0); Lymphocytes # (auto) 2.6 10 ^3/uL (0.4-5.4); Mean Corpuscular Hgb Conc. 30.9 g/dL (32.0-36.0); Monocytes # (auto) 0.6 10 ^3/uL (0-1.3); Neutrophils # (auto) 4.7 10 ^3/uL (1.6-8.6); Nucleated Red Blood Cells % 0.1 %
[2023-01-16 06:32] LABS: Hematocrit 31.6 % (41.0-53.0); Hemoglobin 9.7 g/dL (13.5-17.5); Lymphocytes % (auto) 32.9 % (10.0-50.0); Mean Corpuscular Hemoglobin 25.2 pg (28.0-32.0); Mean Corpuscular Volume 81.6 fL (80.0-100.0); Neutrophils % (auto) 58.9 % (37.0-80.0); Red Blood Cells 3.87 10^6/uL (4.5-5.90); Red Cell Distribution Width 18.9 % (11.8-14.3)
[2023-01-16 06:45] VITALS: O2SAT 96
[2023-01-16] MEDS: InsuLIN REG 1unit/0.01ml Soln (100units/ml) SC SCH ×4 (07:00→22:00)
[2023-01-16] MEDS: ACCU-CHEK COMFORT CURVE STRIP VI SCH ×4 (07:06→23:17)
[2023-01-16] MEDS: GABAPENTIN 300 MG CAP PO SCH ×3 (07:52→23:14)
[2023-01-16] MEDS ORDERED: D5W/LACTATED RINGERS 1,000 ML IV SCH (08:00)
[2023-01-16 08:13] VITALS: PULSE 79; RESP 20; O2SAT 95
[2023-01-16 09:03] LABS: Potassium 3.7 mmol/L (3.5-5.1)
[2023-01-16 09:19] LABS: Albumin 3.8 g/dL (3.4-5.0); BUN/Creatinine Ratio 17.9 (10.0-20.0); Bilirubin, Total 0.3 mg/dL (0.2-1.0); Calcium 8.5 mg/dL (8.7-10.4); Total Protein 6.5 g/dL (6.4-8.2)
[2023-01-16] MEDS ORDERED: LORazepam 2MG/ML-1ML VIAL IV PRN (09:45)
[2023-01-16] MEDS: TAMSULOSIN HYDROCHLORIDE 0.4 MG CAP PO SCH (10:41)
[2023-01-16] MEDS: PANTOPRAZOLE 40 MG TAB PO SCH (10:41)
[2023-01-16] MEDS: FUROSEMIDE 40 MG TAB PO SCH ×2 (10:41→23:13)
[2023-01-16] MEDS: ENOXAPARIN SOD 40 MG/0.4 ML SYRINGE SC SCH (10:42)
[2023-01-16] MEDS: amLODIPine BESYLATE 5 MG TAB PO SCH (10:42)
[2023-01-16] MEDS ORDERED: CLINIMIX PER PHARMACY 0 ML IV SCH (12:00)
[2023-01-16] MEDS: D5W/LACTATED RINGERS 1,000 ML IV SCH (12:07)
[2023-01-16] MEDS: HYDROcodone-ACET 5/325MG TAB PO PRN ×2 (12:32→23:15)
[2023-01-16 12:38] LABS: Phosphorus 5.5 mg/dL (2.4-5.1)
[2023-01-16] MEDS: ONDANSETRON HCL 4 MG/2 ML VIAL IV PRN (15:16)
[2023-01-16] MEDS: MORPHINE SULFATE INJ 2 MG/ml SYRG IV PRN (15:16)
[2023-01-16] MEDS ORDERED: METOCLOPRAMIDE HCL 5MG/ml INJ 2ml VIAL IV ONE (17:30)
[2023-01-16 18:27] VITALS: O2SAT 98
[2023-01-16 20:00] VITALS: PULSE 94; RESP 17; O2SAT 97
[2023-01-16] MEDS: AMINO ACID INFUSION IN D10W 1,000 ML IV NR (20:17)
[2023-01-16 22:30] VITALS: BP 132/84; PULSE 95; RESP 22; TEMP 98.5; O2SAT 96
[2023-01-16] MEDS: PRAVASTATIN SODIUM 20 MG TAB PO SCH (23:14)
[2023-01-16] MEDS: VENLAFAXINE HCL 37.5mg XR cap PO SCH (23:15)
[2023-01-16] MEDS ORDERED: HYDR2TAB58 PO (23:30)
[2023-01-16] MEDS ORDERED: TRAM50TA2 PO (23:30)
[2023-01-16] MEDS ORDERED: DEXA2TAB PO (23:30)
[2023-01-17] VITALS (11 sets, daily range): BP systolic 123–142; BP diastolic 72–87; PULSE 88–101; RESP 16–22; TEMP 97.6–98.5; O2SAT 92–97
[2023-01-17] MEDS ORDERED: DEXTROSE (50%) 50ML SYRG IV SCH
[2023-01-17] MEDS: ACCU-CHEK COMFORT CURVE STRIP VI SCH ×5 (00:08→23:39)
[2023-01-17] MEDS ORDERED: HYDROmorphone HCL 2 MG TAB PO ONE (00:45)
[2023-01-17] MEDS: GABAPENTIN 300 MG CAP PO SCH ×3 (05:49→20:59)
[2023-01-17] MEDS: D5W/LACTATED RINGERS 1,000 ML IV SCH (05:52)
[2023-01-17] MEDS: HYDROcodone-ACET 5/325MG TAB PO PRN (05:53)
[2023-01-17] MEDS: InsuLIN REG 1unit/0.01ml Soln (100units/ml) SC SCH ×5 (06:00→23:39)
[2023-01-17 06:41] LABS: Alanine Aminotransferase 35 U/L (7-40); Alkaline Phosphatase 103 U/L (46-116); Aspartate Aminotransferase 20 U/L (13-40); BUN/Creatinine Ratio 12.7 (10.0-20.0); Bilirubin, Total 0.2 mg/dL (0.2-1.0); Blood Urea Nitrogen 10 mg/dL (9-23); Calcium 8.6 mg/dL (8.5-10.1); Chloride 106 mmol/L (98-107); Glucose 101 mg/dL (74-106); Magnesium 1.7 mg/dL (1.6-2.6); Phosphorus 3.4 mg/dL (2.4-5.1); Potassium 3.5 mmol/L (3.5-5.1); Sodium 140 mmol/L (136-145); Total Protein 5.6 g/dL (5.7-8.2)
[2023-01-17 06:44] LABS: Albumin 3.6 g/dL (3.2-4.8)
[2023-01-17] MEDS: PANTOPRAZOLE 40 MG TAB PO SCH (08:53)
[2023-01-17] MEDS: FUROSEMIDE 40 MG TAB PO SCH ×2 (08:53→21:07)
[2023-01-17] MEDS: TAMSULOSIN HYDROCHLORIDE 0.4 MG CAP PO SCH (08:54)
[2023-01-17] MEDS: amLODIPine BESYLATE 5 MG TAB PO SCH (08:54)
[2023-01-17] MEDS: ENOXAPARIN SOD 40 MG/0.4 ML SYRINGE SC SCH (08:54)
[2023-01-17] MEDS: OXYCODONE W/ ACETAMINOPHEN 5/325MG TABLET PO PRN (10:30)
[2023-01-17] MEDS: ONDANSETRON HCL 4 MG/2 ML VIAL IV PRN (14:18)
[2023-01-17] MEDS: MORPHINE SULFATE INJ 2 MG/ml SYRG IV PRN (14:19)
[2023-01-17] MEDS: VENLAFAXINE HCL 37.5mg XR cap PO SCH (21:00)
[2023-01-17] MEDS: PRAVASTATIN SODIUM 20 MG TAB PO SCH (21:00)
[2023-01-17] MEDS: AMINO ACID INFUSION IN D10W 1,000 ML IV NR (21:00)
[2023-01-18] VITALS (10 sets, daily range): BP systolic 107–157; BP diastolic 44–96; PULSE 84–111; RESP 16–20; TEMP 97.9–98.5; O2SAT 94–95
[2023-01-18] MEDS: OXYCODONE W/ ACETAMINOPHEN 5/325MG TABLET PO PRN ×5 (00:04→23:38)
[2023-01-18] MEDS: D5W/LACTATED RINGERS 1,000 ML IV SCH ×2 (03:48→23:37)
[2023-01-18] MEDS: GABAPENTIN 300 MG CAP PO SCH ×3 (05:53→21:31)
[2023-01-18] MEDS: ACCU-CHEK COMFORT CURVE STRIP VI SCH ×3 (05:53→17:53)
[2023-01-18] MEDS: InsuLIN REG 1unit/0.01ml Soln (100units/ml) SC SCH ×3 (05:55→17:53)
[2023-01-18 06:13] LABS: Alanine Aminotransferase 27 U/L (7-40); Albumin 3.6 g/dL (3.2-4.8); Alkaline Phosphatase 96 U/L (46-116); Anion Gap 6.4 (5-15); Aspartate Aminotransferase 14 U/L (13-40); Bilirubin, Total < 0.2 mg/dL (0.2-1.0); Blood Urea Nitrogen 9 mg/dL (9-23); Calcium 8.6 mg/dL (8.7-10.4); Carbon Dioxide 29.6 mmol/L (20-30); Chloride 107 mmol/L (98-107); Magnesium 1.8 mg/dL (1.6-2.6); Phosphorus 2.5 mg/dL (2.4-5.1); Potassium 3.4 mmol/L (3.5-5.1); Sodium 143 mmol/L (136-145); Total Protein 5.6 g/dL (5.7-8.2)
[2023-01-18 06:25] LABS: Glucose 44 mg/dL (74-106)
[2023-01-18] MEDS: PANTOPRAZOLE 40 MG TAB PO SCH (08:57)
[2023-01-18] MEDS: TAMSULOSIN HYDROCHLORIDE 0.4 MG CAP PO SCH (08:57)
[2023-01-18] MEDS: FUROSEMIDE 40 MG TAB PO SCH ×2 (08:57→21:35)
[2023-01-18] MEDS: amLODIPine BESYLATE 5 MG TAB PO SCH (08:58)
[2023-01-18] MEDS: ENOXAPARIN SOD 40 MG/0.4 ML SYRINGE SC SCH (08:58)
[2023-01-18] MEDS ORDERED: POTASSIUM CHL 20MEQ/100ML 100 ML IV ONE (09:30)
[2023-01-18] MEDS: VENLAFAXINE HCL 37.5mg XR cap PO SCH (21:31)
[2023-01-18] MEDS: DOCUSATE SOD 100 MG CAP PO SCH (21:31)
[2023-01-18] MEDS: PRAVASTATIN SODIUM 20 MG TAB PO SCH (21:32)
[2023-01-18] MEDS: AMINO ACID INFUSION IN D10W 1,000 ML IV NR (21:32)
[2023-01-19] VITALS (8 sets, daily range): BP systolic 133–151; BP diastolic 78–95; PULSE 97–114; RESP 18–21; TEMP 97.8–98.3; O2SAT 94–100
[2023-01-19] MEDS: ACCU-CHEK COMFORT CURVE STRIP VI SCH ×2 (00:54→06:31)
[2023-01-19] MEDS: GABAPENTIN 300 MG CAP PO SCH ×3 (06:31→21:35)
[2023-01-19] MEDS: InsuLIN REG 1unit/0.01ml Soln (100units/ml) SC SCH ×2 (06:34)
[2023-01-19 07:14] LABS: Alanine Aminotransferase 24 U/L (7-40); Albumin 3.8 g/dL (3.2-4.8); Alkaline Phosphatase 99 U/L (46-116); Anion Gap 7.9 (5-15); Aspartate Aminotransferase 13 U/L (13-40); BUN/Creatinine Ratio 12.9 (10.0-20.0); Bilirubin, Total 0.2 mg/dL (0.2-1.0); Blood Urea Nitrogen 9 mg/dL (9-23); Calcium 8.7 mg/dL (8.7-10.4); Carbon Dioxide 27.1 mmol/L (20-30); Chloride 104 mmol/L (98-107); Magnesium 1.5 mg/dL (1.6-2.6); Phosphorus 1.7 mg/dL (2.4-5.1); Potassium 3.3 mmol/L (3.5-5.1); Sodium 139 mmol/L (136-145)
[2023-01-19 07:20] LABS: Glucose 211 mg/dL (74-106)
[2023-01-19] MEDS: OXYCODONE W/ ACETAMINOPHEN 5/325MG TABLET PO PRN ×3 (07:39→21:38)
[2023-01-19] MEDS: TAMSULOSIN HYDROCHLORIDE 0.4 MG CAP PO SCH (10:43)
[2023-01-19] MEDS: DOCUSATE SOD 100 MG CAP PO SCH ×2 (10:43→21:35)
[2023-01-19] MEDS: PANTOPRAZOLE 40 MG TAB PO SCH (10:43)
[2023-01-19] MEDS: FUROSEMIDE 40 MG TAB PO SCH ×2 (10:44→21:37)
[2023-01-19] MEDS: amLODIPine BESYLATE 5 MG TAB PO SCH (10:44)
[2023-01-19] MEDS: ENOXAPARIN SOD 40 MG/0.4 ML SYRINGE SC SCH (10:45)
[2023-01-19] MEDS ORDERED: POTASSIUM PHOSPHATE 44 MEQ in D5W 5% 250 ML IV ONE (15:45)
[2023-01-19] MEDS: MAGNESIUM SULFATE 1GM/100ML 100 ML IV SCH ×3 (16:00→17:10)
[2023-01-19] MEDS: D5W/LACTATED RINGERS 1,000 ML IV SCH (21:31)
[2023-01-19] MEDS: AMINO ACID INFUSION IN D10W 1,000 ML IV NR (21:33)
[2023-01-19] MEDS: VENLAFAXINE HCL 37.5mg XR cap PO SCH (21:35)
[2023-01-19] MEDS: PRAVASTATIN SODIUM 20 MG TAB PO SCH (21:37)
[2023-01-19] MEDS: ONDANSETRON HCL 4 MG/2 ML VIAL IV PRN (21:48)
[2023-01-20] VITALS (10 sets, daily range): BP systolic 105–143; BP diastolic 61–84; PULSE 83–106; RESP 16–20; TEMP 98.2–99.4; O2SAT 91–99
[2023-01-20] MEDS: OXYCODONE W/ ACETAMINOPHEN 5/325MG TABLET PO PRN (03:44)
[2023-01-20] MEDS: GABAPENTIN 300 MG CAP PO SCH ×3 (06:22→21:08)
[2023-01-20 06:48] LABS: Potassium 3.3 mmol/L (3.5-5.1)
[2023-01-20 06:49] LABS: Calcium 9.1 mg/dL (8.7-10.4)
[2023-01-20 06:54] LABS: BUN/Creatinine Ratio 12.3 (10.0-20.0)
[2023-01-20 06:55] LABS: Magnesium 1.7 mg/dL (1.6-2.6)
[2023-01-20] MEDS: PANTOPRAZOLE 40 MG TAB PO SCH (10:09)
[2023-01-20] MEDS: DOCUSATE SOD 100 MG CAP PO SCH ×2 (10:09→21:08)
[2023-01-20] MEDS: FUROSEMIDE 40 MG TAB PO SCH ×2 (10:10→21:09)
[2023-01-20] MEDS: TAMSULOSIN HYDROCHLORIDE 0.4 MG CAP PO SCH (10:10)
[2023-01-20] MEDS: amLODIPine BESYLATE 5 MG TAB PO SCH (10:11)
[2023-01-20] MEDS: ENOXAPARIN SOD 40 MG/0.4 ML SYRINGE SC SCH (10:11)
[2023-01-20] MEDS: POTASSIUM CHL 20MEQ/100ML 100 ML IV SCH ×2 (11:54→15:30)
[2023-01-20] MEDS ORDERED: KETOROLAC TROMETH 30 MG/ML 1ML VIAL IV PRN ×3 (16:00→16:45)
[2023-01-20] MEDS: D5W/LACTATED RINGERS 1,000 ML IV SCH (16:00)
[2023-01-20] MEDS: MORPHINE SULFATE INJ 2 MG/ml SYRG IV PRN ×3 (16:52→21:16)
[2023-01-20] MEDS: AMINO ACID INFUSION IN D10W 1,000 ML IV NR (21:07)
[2023-01-20] MEDS: PRAVASTATIN SODIUM 20 MG TAB PO SCH (21:08)
[2023-01-20] MEDS: VENLAFAXINE HCL 37.5mg XR cap PO SCH (21:08)
[2023-01-21] VITALS (10 sets, daily range): BP systolic 119–126; BP diastolic 58–71; PULSE 86–114; RESP 17–20; TEMP 98.1–98.3; O2SAT 92–97
[2023-01-21] MEDS: MORPHINE SULFATE INJ 2 MG/ml SYRG IV PRN ×3 (03:54→21:08)
[2023-01-21] MEDS: GABAPENTIN 300 MG CAP PO SCH ×3 (06:12→21:01)
[2023-01-21] MEDS ORDERED: DEXTROSE (50%) 50ML SYRG IV PRN (07:00)
[2023-01-21] MEDS: InsuLIN REG 1unit/0.01ml Soln (100units/ml) SC SCH ×5 (08:00→23:40)
[2023-01-21] MEDS: ACCU-CHEK COMFORT CURVE STRIP VI SCH ×5 (08:24→23:45)
[2023-01-21 08:39] LABS: Alanine Aminotransferase 16 U/L (7-40); Alkaline Phosphatase 88 U/L (46-116); Anion Gap 3.8 (5-15); Aspartate Aminotransferase 9 U/L (13-40); BUN/Creatinine Ratio 16.2 (10.0-20.0); Blood Urea Nitrogen 11 mg/dL (9-23); Calcium 8.9 mg/dL (8.5-10.1); Carbon Dioxide 33.2 mmol/L (20-30); Chloride 105 mmol/L (98-107); Magnesium 1.9 mg/dL (1.6-2.6); Potassium 3.4 mmol/L (3.5-5.1); Sodium 142 mmol/L (136-145)
[2023-01-21 08:40] LABS: Albumin 3.7 g/dL (3.2-4.8); Bilirubin, Total 0.2 mg/dL (0.2-1.0); Phosphorus 2.2 mg/dL (2.4-5.1); Total Protein 5.7 g/dL (5.7-8.2)
[2023-01-21 08:44] LABS: Glucose 33 mg/dL (74-106)
[2023-01-21] MEDS: TAMSULOSIN HYDROCHLORIDE 0.4 MG CAP PO SCH (09:20)
[2023-01-21] MEDS: PANTOPRAZOLE 40 MG TAB PO SCH (09:20)
[2023-01-21] MEDS: DOCUSATE SOD 100 MG CAP PO SCH ×2 (09:20→21:00)
[2023-01-21] MEDS: amLODIPine BESYLATE 5 MG TAB PO SCH (09:21)
[2023-01-21] MEDS: FUROSEMIDE 40 MG TAB PO SCH ×2 (09:22→21:07)
[2023-01-21] MEDS: ENOXAPARIN SOD 40 MG/0.4 ML SYRINGE SC SCH (09:22)
[2023-01-21] MEDS ORDERED: POTASSIUM PHOSPHATE 26.4 MEQ in SODIUM CHL 0.9% 100 ML IV ONE (12:00)
[2023-01-21] MEDS: D5W/LACTATED RINGERS 1,000 ML IV SCH (12:00)
[2023-01-21] MEDS: AMINO ACID INFUSION IN D10W 1,000 ML IV NR (21:00)
[2023-01-21] MEDS: PRAVASTATIN SODIUM 20 MG TAB PO SCH (21:01)
[2023-01-21] MEDS: VENLAFAXINE HCL 37.5mg XR cap PO SCH (21:01)
[2023-01-22] VITALS (7 sets, daily range): BP systolic 120–144; BP diastolic 59–82; PULSE 68–101; RESP 14–20; TEMP 36.8; O2SAT 90–98
[2023-01-22] MEDS: MORPHINE SULFATE INJ 2 MG/ml SYRG IV PRN ×5 (02:23→22:37)
[2023-01-22] MEDS: ACCU-CHEK COMFORT CURVE STRIP VI SCH ×5 (03:55→20:00)
[2023-01-22] MEDS: InsuLIN REG 1unit/0.01ml Soln (100units/ml) SC SCH ×3 (03:55→12:00)
[2023-01-22 06:21] LABS: Alanine Aminotransferase 23 U/L (7-40); Albumin 3.7 g/dL (3.2-4.8); Alkaline Phosphatase 98 U/L (46-116); Anion Gap 6.9 (5-15); Aspartate Aminotransferase 20 U/L (13-40); BUN/Creatinine Ratio 18.8 (10.0-20.0); Blood Urea Nitrogen 15 mg/dL (9-23); Calcium 8.8 mg/dL (8.5-10.1); Carbon Dioxide 31.1 mmol/L (20-30); Chloride 104 mmol/L (98-107); Glucose 102 mg/dL (74-106); Magnesium 1.8 mg/dL (1.6-2.6); Potassium 3.8 mmol/L (3.5-5.1); Sodium 142 mmol/L (136-145)
[2023-01-22] MEDS: GABAPENTIN 300 MG CAP PO SCH ×3 (06:21→22:41)
[2023-01-22 06:22] LABS: Bilirubin, Total 0.2 mg/dL (0.2-1.0); Phosphorus 5.1 mg/dL (2.4-5.1); Total Protein 5.7 g/dL (5.7-8.2)
[2023-01-22] MEDS: D5W/LACTATED RINGERS 1,000 ML IV SCH (09:06)
[2023-01-22] MEDS: ENOXAPARIN SOD 40 MG/0.4 ML SYRINGE SC SCH (09:19)
[2023-01-22] MEDS: FUROSEMIDE 40 MG TAB PO SCH ×2 (09:20→22:42)
[2023-01-22] MEDS: TAMSULOSIN HYDROCHLORIDE 0.4 MG CAP PO SCH (09:20)
[2023-01-22] MEDS: amLODIPine BESYLATE 5 MG TAB PO SCH (09:20)
[2023-01-22] MEDS: PANTOPRAZOLE 40 MG TAB PO SCH (09:20)
[2023-01-22] MEDS: DOCUSATE SOD 100 MG CAP PO SCH ×2 (09:22→22:42)
[2023-01-22] MEDS ORDERED: AMINO ACID INFUSION IN D10W 1,000 ML IV NR (20:00)
[2023-01-22] MEDS: VENLAFAXINE HCL 37.5mg XR cap PO SCH (22:42)
[2023-01-22] MEDS: PRAVASTATIN SODIUM 20 MG TAB PO SCH (22:43)
[2023-01-23] MEDS: ACCU-CHEK COMFORT CURVE STRIP VI SCH ×5 (04:00→16:35)
[2023-01-23 05:00] VITALS: BP 141/72; PULSE 76; RESP 16; TEMP 98; O2SAT 94
[2023-01-23] MEDS: GABAPENTIN 300 MG CAP PO SCH ×2 (06:39→15:19)
[2023-01-23] MEDS: D5W/LACTATED RINGERS 1,000 ML IV SCH (06:40)
[2023-01-23 08:20] VITALS: PULSE 76
[2023-01-23] MEDS: DOCUSATE SOD 100 MG CAP PO SCH (08:59)
[2023-01-23] MEDS: PANTOPRAZOLE 40 MG TAB PO SCH (08:59)
[2023-01-23] MEDS: TAMSULOSIN HYDROCHLORIDE 0.4 MG CAP PO SCH (08:59)
[2023-01-23] MEDS: ENOXAPARIN SOD 40 MG/0.4 ML SYRINGE SC SCH (08:59)
[2023-01-23 09:00] VITALS: BP 134/90; PULSE 73; RESP 14; TEMP 98.6; O2SAT 96
[2023-01-23] MEDS: FUROSEMIDE 40 MG TAB PO SCH (09:00)
[2023-01-23] MEDS: amLODIPine BESYLATE 5 MG TAB PO SCH (09:00)
[2023-01-23 11:59] LABS: Anion Gap 4.9 (5-15); Calcium 8.7 mg/dL (8.5-10.1); Carbon Dioxide 30.1 mmol/L (20-30)
[2023-01-23 12:04] LABS: BUN/Creatinine Ratio 14.3 (10.0-20.0)
[2023-01-23 12:06] LABS: Albumin 3.8 g/dL (3.2-4.8)
[2023-01-23] MEDS ORDERED: POTASSIUM CHL 20MEQ/100ML 100 ML IV ONE (12:30)
[2023-01-23] MEDS ORDERED: CALCIUM GLUC 1,000mg/50ml-NS 50 ML IV ONE (12:30)
[2023-01-23] MEDS: MAGNESIUM SULFATE 1GM/100ML 100 ML IV SCH ×2 (13:21→15:19)
[2023-01-23 13:58] VITALS: BP 134/80; PULSE 76; RESP 16; TEMP 97.6; O2SAT 96
[2023-01-23] MEDS ORDERED: POTASSIUM PHOSPHATE 22 MEQ in SODIUM CHL 0.9% 100 ML IV ONE (15:00)
[2023-01-23] MEDS ORDERED: LACTULOSE 20Gm/30ML SOLN PO ONE (16:30)
[2023-01-23] MEDS: OXYCODONE W/ ACETAMINOPHEN 5/325MG TABLET PO PRN (16:43)
[2023-01-23 17:00] VITALS: BP 124/88; PULSE 90; RESP 16; TEMP 97.8; O2SAT 97
[2023-01-23] MEDS ORDERED: AMINO ACID INFUSION IN D10W 1,000 ML IV NR (20:00)
== END 2023-01-23 18:40 | disposition home or self-care (01) | DRG 53 ==
LOC: ER 14:55 → TELE 18:10 → TELE-CENTR 01-16 22:51
PROVIDERS: ADMIT Nurse Practitioner Family; ATTEND Nurse Practitioner Acute Care
DX: G40.409 Other generalized epilepsy and epileptic syndromes, not intractable, without status epilepticus (principal); E11.649 Type 2 diabetes mellitus with hypoglycemia without coma; I69.354 Hemiplegia and hemiparesis following cerebral infarction affecting left non-dominant side; E66.01 Morbid (severe) obesity due to excess calories; D64.9 Anemia, unspecified; S42.302A Unspecified fracture of shaft of humerus, left arm, initial encounter for closed fracture; G89.4 Chronic pain syndrome; I10 Essential (primary) hypertension; K21.9 Gastro-esophageal reflux disease without esophagitis; E78.5 Hyperlipidemia, unspecified; F41.9 Anxiety disorder, unspecified; I25.10 Atherosclerotic heart disease of native coronary artery without angina pectoris; J45.909 Unspecified asthma, uncomplicated; W18.39XA Other fall on same level, initial encounter; Z68.32 Body mass index [BMI] 32.0-32.9, adult; Z82.3 Family history of stroke; Z82.49 Family history of ischemic heart disease and other diseases of the circulatory system; Z83.3 Family history of diabetes mellitus; Z85.028 Personal history of other malignant neoplasm of stomach; Z87.11 Personal history of peptic ulcer disease; I25.2 Old myocardial infarction; Z90.49 Acquired absence of other specified parts of digestive tract; Y93.89 Activity, other specified; Y92.89 Other specified places as the place of occurrence of the external cause; Y99.8 Other external cause status
CPT/HCPCS: 36415; 70450; 71045; 72125; 73200; 80053; 80061; 80069; 80307; 81001; 82542; 82962; 83036; 83735; 84100; 84443; 85025; 87040; 93005; 95819; G0378; J1815; J1885; J2405; J3480; J7060

== ENCOUNTER 2023-05-17 18:11 | Emergency (ER) | payer MEDICAID ==
[~2023-05-17] VITALS: Ht 170.2 cm; Wt 86.5 kg
[~2023-05-17 18:11] MED LIST changes: +DEXA2TAB PO; +HYDR2TAB58 PO; -METF-372 PO; +TRAM50TA2 PO
[2023-05-17 19:15] LABS: Basophils # (auto) 0 10 ^3/uL (0-0.2); Basophils % (auto) 0.2 % (0.0-2.0); Eosinophils # (auto) 0 10 ^3/uL (0-0.8); Hematocrit 29.7 % (41.0-53.0); Hemoglobin 8.6 g/dL (13.5-17.5); Lymphocytes # (auto) 1.1 10 ^3/uL (0.4-5.4); Lymphocytes % (auto) 8.2 % (10.0-50.0); Mean Corpuscular Hemoglobin 23.4 pg (28.0-32.0); Mean Corpuscular Hgb Conc. 29.1 g/dL (32.0-36.0); Mean Corpuscular Volume 80.4 fL (80.0-100.0); Monocytes # (auto) 0.9 10 ^3/uL (0-1.3); Monocytes % (auto) 6.6 % (0.0-12.0); Neutrophils # (auto) 11.4 10 ^3/uL (1.6-8.6); Nucleated Red Blood Cells % 0.2 %; Red Blood Cells 3.69 10^6/uL (4.5-5.90); Red Cell Distribution Width 17.2 % (11.8-14.3); White Blood Cell 13.5 10^3/uL (4.4-10.8)
[2023-05-17 19:21] VITALS: BP 115/75; RESP 24; O2SAT 99
[2023-05-17 19:22] VITALS: PULSE 108
[2023-05-17 19:43] LABS: Alanine Aminotransferase 31 U/L (7-40); Albumin 4.4 g/dL (3.2-4.8); Alkaline Phosphatase 126 U/L (46-116); Anion Gap 18 (5-15); Aspartate Aminotransferase 43 U/L (13-40); BUN/Creatinine Ratio 13.7 (10.0-20.0); Blood Urea Nitrogen 16 mg/dL (9-23); Calcium 8.8 mg/dL (8.7-10.4); Carbon Dioxide 15 mmol/L (20-30); Chloride 106 mmol/L (98-107); Glucose 227 mg/dL (74-106); Potassium 2.8 mmol/L (3.5-5.1); Sodium 139 mmol/L (136-145)
[2023-05-17 19:44] LABS: Bilirubin, Total 0.4 mg/dL (0.2-1.0); Total Protein 6.5 g/dL (5.7-8.2)
[2023-05-17] MEDS ORDERED: NITROGLYCERIN 0.4 MG SL TAB SL ONE (19:45)
[2023-05-17 21:03] LABS: Urine Bacteria NONE SEEN /hpf (None Seen); Urine Blood Negative /uL (Negative); Urine Clarity Clear (Clear); Urine Hyaline Cast MANY /lpf (0 - 2); Urine Protein, UAD Negative (Negative); Urine Specific Gravity 1.018 (1.001-1.035); Urine Urobilinogen Normal (Negative); Urine WBC 1 /hpf (0 - 3)
[2023-05-17 21:10] LABS: Urine Color STRAW (Yellow)
== END 2023-05-17 22:19 | disposition left against medical advice (07) ==
LOC: EEVIPCON 18:11 → ER 18:11 → EDBD 18:11 → ER 22:19
DX: I24.9 Acute ischemic heart disease, unspecified (principal); D64.9 Anemia, unspecified; R07.89 Other chest pain; E78.5 Hyperlipidemia, unspecified; I10 Essential (primary) hypertension; J45.909 Unspecified asthma, uncomplicated; K21.9 Gastro-esophageal reflux disease without esophagitis; E11.9 Type 2 diabetes mellitus without complications; Z90.49 Acquired absence of other specified parts of digestive tract
CPT/HCPCS: 36415; 80053; 81001; 84484; 85025; 85379; 93005

== ENCOUNTER 2023-07-04 15:24 | Inpatient (IN) | payer MEDICAID ==
[~2023-07-04] VITALS: Ht 167.6 cm; Wt 91.6 kg
[2023-07-04 16:05] LABS: Basophils # (auto) 0 10 ^3/uL (0-0.2); Eosinophils # (auto) 0.1 10 ^3/uL (0-0.8); Lymphocytes # (auto) 1.4 10 ^3/uL (0.4-5.4); Nucleated Red Blood Cells % 0.1 %
[2023-07-04 16:07] LABS: Basophils % (auto) 0.8 % (0.0-2.0); Eosinophils % (auto) 1.7 % (0.0-7.0); Hematocrit 26.4 % (41.0-53.0); Hemoglobin 7.8 g/dL (13.5-17.5); Lymphocytes % (auto) 40.6 % (10.0-50.0); Mean Corpuscular Hemoglobin 22.5 pg (28.0-32.0); Mean Corpuscular Hgb Conc. 29.4 g/dL (32.0-36.0); Mean Corpuscular Volume 76.6 fL (80.0-100.0); Monocytes # (auto) 0.4 10 ^3/uL (0-1.3); Monocytes % (auto) 11.2 % (0.0-12.0); Neutrophils # (auto) 1.6 10 ^3/uL (1.6-8.6); Neutrophils % (auto) 45.7 % (37.0-80.0); Red Blood Cells 3.44 10^6/uL (4.5-5.90); Red Cell Distribution Width 18.3 % (11.8-14.3); White Blood Cell 3.5 10^3/uL (4.4-10.8)
[2023-07-04 16:36] LABS: Alanine Aminotransferase 14 U/L (7-40); Albumin 3.7 g/dL (3.2-4.8); Alkaline Phosphatase 113 U/L (46-116); Anion Gap 5 (5-15); Aspartate Aminotransferase 12 U/L (13-40); BUN/Creatinine Ratio 19.4 (10.0-20.0); Blood Urea Nitrogen 14 mg/dL (9-23); Calcium 8.7 mg/dL (8.7-10.4); Carbon Dioxide 30 mmol/L (20-30); Chloride 107 mmol/L (98-107); Glucose 76 mg/dL (74-106); Sodium 142 mmol/L (136-145)
[2023-07-04 16:37] LABS: Bilirubin, Total 0.2 mg/dL (0.2-1.0); Total Protein 5.4 g/dL (5.7-8.2)
[2023-07-04] MEDS: levETIRAcetam 1000 mg/100ml 100 ML IV ONE (18:02)
[2023-07-04] MEDS ORDERED: MORPHINE SULFATE 4 MG/ML SYR/VIAL IV PRN (19:00)
[2023-07-04] MEDS ORDERED: ONDANSETRON HCL 4 MG/2 ML VIAL IV PRN (19:00)
[2023-07-04] MEDS ORDERED: ACETAMINOPHEN 325 MG TAB PO PRN (19:00)
[2023-07-04] MEDS ORDERED: NITROGLYCERIN 0.4 MG SL TAB SL PRN (19:00)
[2023-07-04 19:30] LABS: Urine Bacteria NONE SEEN /hpf (None Seen); Urine Blood Negative /uL (Negative); Urine Clarity Clear (Clear); Urine Color Yellow (Yellow); Urine Hyaline Cast FEW /lpf (0 - 2); Urine Mucus FEW (None Seen); Urine Protein, UAD TRACE (Negative); Urine Specific Gravity 1.022 (1.001-1.035); Urine Urobilinogen Normal (Negative); Urine WBC 1 /hpf (0 - 3); Urine pH 6.5 (5.0-8.0)
[2023-07-04] MEDS ORDERED: DEXTROSE (50%) 50ML SYRG IV PRN (19:30)
[2023-07-04 19:33] LABS: Triglycerides 92 mg/dL (< 150)
[2023-07-04 19:34] LABS: LDL Cholesterol 68 mg/dL (< 100)
[2023-07-04 19:35] LABS: Cholesterol 143 mg/dL (< 200); HDL Cholesterol 58 mg/dL (40-59)
[2023-07-04 19:44] LABS: Hematocrit 27.2 % (41.0-53.0); Hemoglobin 7.7 g/dL (13.5-17.5)
[2023-07-04 19:51] LABS: INR 1.05 (0.9-1.15)
[2023-07-04] MEDS: IBUPROFEN 800 MG TAB PO SCH (21:04)
[2023-07-04] MEDS: ENOXAPARIN SOD 100 MG/1 ML SYRINGE SC SCH (21:06)
[2023-07-04] MEDS: FUROSEMIDE 40 MG TAB PO SCH (21:06)
[2023-07-04] MEDS: SODIUM CHLORIDE 0.9% 1,000 ML IV SCH (21:08)
[2023-07-04] MEDS: hydroCHLOROthiazide 25 MG TAB PO SCH (22:00)
[2023-07-04] MEDS: HYDROmorphone HCL 2 MG TAB PO SCH (22:00)
[2023-07-04] MEDS: amLODIPine BESYLATE 5 MG TAB PO SCH (22:00)
[2023-07-04] MEDS: LISINOPRIL 20 MG TAB PO SCH (22:00)
[2023-07-04] MEDS: InsuLIN REG 1unit/0.01ml Soln (100units/ml) SC SCH (22:00)
[2023-07-04] MEDS: GEMFIBROZIL 600 MG TAB PO SCH (22:18)
[2023-07-04] MEDS: GABAPENTIN 300 MG CAP PO SCH (22:19)
[2023-07-04] MEDS: ATORVASTATIN 20 MG TAB PO SCH (22:19)
[2023-07-04] MEDS: TAMSULOSIN HYDROCHLORIDE 0.4 MG CAP PO SCH (22:19)
[2023-07-04] MEDS: ACCU-CHEK COMFORT CURVE STRIP VI SCH (22:23)
[2023-07-05] VITALS (10 sets, daily range): BP systolic 85–116; BP diastolic 50–70; PULSE 67–89; RESP 18–20; TEMP 98.1–98.8; O2SAT 94–97
[2023-07-05] MEDS: LORazepam 0.5 MG TAB PO PRN (02:09)
[2023-07-05] MEDS: levETIRAcetam 1000 mg/100ml 100 ML IV SCH (06:56)
[2023-07-05 10:23] LABS: Alanine Aminotransferase 10 U/L (7-40); Albumin 3.2 g/dL (3.2-4.8); Alkaline Phosphatase 96 U/L (46-116); Anion Gap 4 (5-15); Aspartate Aminotransferase 14 U/L (13-40); BUN/Creatinine Ratio 19.2 (10.0-20.0); Basophils # (auto) 0 10 ^3/uL (0-0.2); Basophils % (auto) 0.6 % (0.0-2.0); Bilirubin, Total 0.2 mg/dL (0.2-1.0); Blood Urea Nitrogen 14 mg/dL (9-23); Calcium 8.4 mg/dL (8.5-10.1); Carbon Dioxide 29 mmol/L (20-30); Chloride 108 mmol/L (98-107); Eosinophils # (auto) 0.1 10 ^3/uL (0-0.8); Glucose 75 mg/dL (74-106); Monocytes # (auto) 0.4 10 ^3/uL (0-1.3); Neutrophils # (auto) 1.9 10 ^3/uL (1.6-8.6); Potassium 3.4 mmol/L (3.5-5.1); Red Blood Cells 2.96 10^6/uL (4.5-5.90); Sodium 141 mmol/L (136-145); Total Protein 4.7 g/dL (5.7-8.2)
[2023-07-05 10:25] LABS: Eosinophils % (auto) 1.8 % (0.0-7.0); Hematocrit 22.6 % (41.0-53.0); Lymphocytes # (auto) 1.2 10 ^3/uL (0.4-5.4); Lymphocytes % (auto) 32.8 % (10.0-50.0); Mean Corpuscular Hemoglobin 22.5 pg (28.0-32.0); Mean Corpuscular Hgb Conc. 29.4 g/dL (32.0-36.0); Mean Corpuscular Volume 76.6 fL (80.0-100.0); Monocytes % (auto) 11.9 % (0.0-12.0); Neutrophils % (auto) 52.9 % (37.0-80.0); Nucleated Red Blood Cells % 0.2 %; Red Cell Distribution Width 18.2 % (11.8-14.3); White Blood Cell 3.6 10^3/uL (4.4-10.8)
[2023-07-05 10:33] LABS: Hemoglobin 6.7 g/dL (13.5-17.5)
[2023-07-05] MEDS: PANTOPRAZOLE 40 MG/10 ML VIAL INJ IV SCH (11:37)
[2023-07-05] MEDS: DOCUSATE SOD 100 MG CAP PO SCH (11:38)
[2023-07-05] MEDS: ASPirin 81 mg TAB PO SCH (11:38)
[2023-07-05] MEDS: POTASSIUM CHL 20 Meq TABLET PO ONE (15:10)
[2023-07-05] MEDS: HYDROcodone-ACET 5/325MG TAB PO PRN (15:12)
[2023-07-05 21:32] LABS: Hemoglobin 10.2 g/dL (13.5-17.5)
[2023-07-06 05:00] VITALS: BP 105/60; PULSE 66; RESP 18; TEMP 97.6; O2SAT 100
[2023-07-06] MEDS: IOHEXOL 350 MG/ML 100ML IJ ONE (07:45)
[2023-07-06] MEDS ORDERED: VENL75CA78 PO (08:06)
[2023-07-06] MEDS ORDERED: ONDA-188 PO (08:06)
[2023-07-06] MEDS ORDERED: QUET1TAB11 PO (08:06)
[2023-07-06] MEDS ORDERED: MORP15TA PO (08:06)
[2023-07-06] MEDS ORDERED: FURO40TA4 PO (08:06)
[2023-07-06] MEDS ORDERED: ERGO1CAP12 PO (08:06)
[2023-07-06] MEDS ORDERED: LACO150T3 PO (08:06)
[2023-07-06] MEDS ORDERED: TRAZ1TAB12 PO (08:06)
[2023-07-06] MEDS ORDERED: ALBU108A5 PO (08:06)
[2023-07-06] MEDS ORDERED: [UNRECOGNIZED DRUG - CODE] PO (08:06)
[2023-07-06] MEDS ORDERED: SEMA4INJ SC (08:06)
[2023-07-06] MEDS ORDERED: GABA-1251 PO (08:06)
[2023-07-06 08:30] VITALS: BP 126/66; PULSE 61; PULSE 85; RESP 18; TEMP 97.6; O2SAT 99
[2023-07-06] MEDS: ADENOSINE 77 MG in GIVE UN-DILUTED 0 ML IV ONE (09:28)
[2023-07-06 10:31] LABS: Basophils # (auto) 0 10 ^3/uL (0-0.2); Basophils % (auto) 0.8 % (0.0-2.0); Eosinophils # (auto) 0 10 ^3/uL (0-0.8); Eosinophils % (auto) 0.8 % (0.0-7.0); Hematocrit 30.7 % (41.0-53.0); Hemoglobin 9.2 g/dL (13.5-17.5); Lymphocytes # (auto) 1.1 10 ^3/uL (0.4-5.4); Lymphocytes % (auto) 33.1 % (10.0-50.0); Mean Corpuscular Hemoglobin 22.9 pg (28.0-32.0); Mean Corpuscular Hgb Conc. 29.9 g/dL (32.0-36.0); Mean Corpuscular Volume 76.7 fL (80.0-100.0); Monocytes # (auto) 0.3 10 ^3/uL (0-1.3); Monocytes % (auto) 9.2 % (0.0-12.0); Neutrophils # (auto) 1.8 10 ^3/uL (1.6-8.6); Neutrophils % (auto) 56.1 % (37.0-80.0); Red Blood Cells 4.01 10^6/uL (4.5-5.90); Red Cell Distribution Width 17.8 % (11.8-14.3); White Blood Cell 3.2 10^3/uL (4.4-10.8)
[2023-07-06 10:55] LABS: Chloride 109 mmol/L (98-107); Potassium 3.4 mmol/L (3.5-5.1); Sodium 140 mmol/L (136-145)
[2023-07-06 10:56] LABS: Anion Gap 4 (5-15); Calcium 8.7 mg/dL (8.5-10.1); Carbon Dioxide 27 mmol/L (20-30)
[2023-07-06 11:01] LABS: Glucose 107 mg/dL (74-106)
[2023-07-06 11:02] LABS: BUN/Creatinine Ratio 10.5 (10.0-20.0); Blood Urea Nitrogen 6 mg/dL (9-23)
[2023-07-06] MEDS ORDERED: DEXA2TAB PO (11:24)
[2023-07-06] MEDS ORDERED: FENO145T27 PO (11:25)
[2023-07-06] MEDS ORDERED: LEVE500T40 PO (11:27)
[2023-07-06] MEDS ORDERED: MULT1TAB95 IV (11:34)
[2023-07-06] MEDS ORDERED: OCTR50IN IJ (11:36)
[2023-07-06] MEDS ORDERED: QUET25TA37 PO (11:37)
[2023-07-06] MEDS ORDERED: TAMS-35 PO (11:39)
[2023-07-06] MEDS ORDERED: TRAZ150T84 PO (11:39)
[2023-07-06 12:30] VITALS: BP 119/77; PULSE 61; RESP 20; TEMP 97.8; O2SAT 100
[2023-07-06] MEDS ORDERED: POTASSIUM CHL 20 Meq TABLET PO ONE (14:45)
[2023-07-06] MEDS ORDERED: MORPHINE SULFATE INJ 2 MG/ml SYRG IV PRN (15:15)
== END 2023-07-06 15:30 | disposition left against medical advice (07) | DRG 53 ==
LOC: EDUNIT# 15:24 → EDBD 15:24 → ER 15:24 → TELE 19:10 → TELE-WESTW 23:52
PROVIDERS: ADMIT Nurse Practitioner Family; ATTEND Internal Medicine
PROC: 30233N1 Transfusion of Nonautologous Red Blood Cells into Peripheral Vein, Percutaneous Approach (ICD-10-PCS; principal; 2023-07-05)
DX: G40.909 Epilepsy, unspecified, not intractable, without status epilepticus (principal); I24.9 Acute ischemic heart disease, unspecified; E46 Unspecified protein-calorie malnutrition; I95.9 Hypotension, unspecified; D62 Acute posthemorrhagic anemia; E78.5 Hyperlipidemia, unspecified; E11.9 Type 2 diabetes mellitus without complications; F41.9 Anxiety disorder, unspecified; J98.11 Atelectasis; K21.9 Gastro-esophageal reflux disease without esophagitis; J45.909 Unspecified asthma, uncomplicated; I10 Essential (primary) hypertension; Z53.29 Procedure and treatment not carried out because of patient's decision for other reasons; E66.9 Obesity, unspecified; Z68.30 Body mass index [BMI] 30.0-30.9, adult; I25.2 Old myocardial infarction; Z90.49 Acquired absence of other specified parts of digestive tract; Z83.3 Family history of diabetes mellitus; Z82.49 Family history of ischemic heart disease and other diseases of the circulatory system; Z79.4 Long term (current) use of insulin; Z90.3 Acquired absence of stomach [part of]; Z86.73 Personal history of transient ischemic attack (TIA), and cerebral infarction without residual deficits; Z82.3 Family history of stroke; Z68.32 Body mass index [BMI] 32.0-32.9, adult
CPT/HCPCS: 36415; 71045; 71275; 78452; 80048; 80053; 80061; 81001; 82270; 82962; 83036; 83735; 83880; 84443; 84484; 85014; 85018; 85025; 85379; 85610; 86850; 86900; 86901; 86920; 87081; 93005; 93017; 93306; 96365; 99291; C9113; G0378; J0153

== ENCOUNTER 2023-07-27 09:16 | Inpatient (IN) | payer MEDICAID, OTHER ==
[~2023-07-27] VITALS: Ht 167.6 cm; Wt 86.0 kg
[~2023-07-27 09:16] MED LIST changes: -ACET-929 PO; +ALBU108A5 PO; +ERGO1CAP12 PO; -ERGO2000 PO; -FENO145T27 OR; +FENO145T27 PO; -GABA-1250 PO; +GABA-1251 PO; -IBUP-1456; +LACO150T3 PO; +LEVE500T40 PO; +MORP15TA PO; +MULT1TAB95 IV; +ONDA-188 PO; -OXYC325T14 PO; +QUET25TA37 PO; -SEMA2INJ BC; +SEMA4INJ SC; +TAMS-35 PO; -TAMS1CAP25 PO; +TRAZ150T84 PO; -[UNRECOGNIZED DRUG - CODE] IV
[2023-07-27 10:00] VITALS: PULSE 93; RESP 14; O2SAT 95
[2023-07-27 10:04] LABS: Urine Bacteria NONE SEEN /hpf (None Seen); Urine Blood Negative /uL (Negative); Urine Clarity Clear (Clear); Urine Color Colorless (Yellow); Urine Hyaline Cast FEW /lpf (0 - 2); Urine Mucus FEW (None Seen); Urine Protein, UAD Negative (Negative); Urine Specific Gravity 1.015 (1.001-1.035); Urine Urobilinogen Normal (Negative); Urine WBC 1 /hpf (0 - 3)
[2023-07-27 10:24] LABS: Alanine Aminotransferase 23 U/L (7-40); Albumin 4.4 g/dL (3.2-4.8); Alkaline Phosphatase 145 U/L (46-116); Anion Gap 8 (5-15); Aspartate Aminotransferase 27 U/L (13-40); BUN/Creatinine Ratio 9.5 (10.0-20.0); Bilirubin, Total 0.4 mg/dL (0.2-1.0); Blood Urea Nitrogen 8 mg/dL (9-23); Calcium 9.2 mg/dL (8.5-10.1); Carbon Dioxide 24 mmol/L (20-30); Chloride 106 mmol/L (98-107); Glucose 90 mg/dL (74-106); Potassium 3.5 mmol/L (3.5-5.1); Sodium 138 mmol/L (136-145); Total Protein 6.8 g/dL (5.7-8.2)
[2023-07-27] MEDS: levETIRAcetam 1000 mg/100ml 100 ML IV ONE (10:30)
[2023-07-27 10:52] LABS: INR 1.01 (0.9-1.15); Partial Thromboplastin Time 30.2 SEC (24.5-34.5); Prothrombin Time 10.6 sec (9.3-11.8)
[2023-07-27 11:12] LABS: Basophils # (auto) 0 10 ^3/uL (0-0.2); Basophils % (auto) 0.2 % (0.0-2.0); Eosinophils # (auto) 0 10 ^3/uL (0-0.8); Eosinophils % (auto) 0.1 % (0.0-7.0); Monocytes # (auto) 0.6 10 ^3/uL (0-1.3); Nucleated Red Blood Cells % 0.1 %; White Blood Cell 8.8 10^3/uL (4.4-10.8)
[2023-07-27 11:13] LABS: Hematocrit 33.6 % (41.0-53.0); Lymphocytes # (auto) 1.1 10 ^3/uL (0.4-5.4); Lymphocytes % (auto) 12.7 % (10.0-50.0); Mean Corpuscular Hemoglobin 24.3 pg (28.0-32.0); Mean Corpuscular Hgb Conc. 29.8 g/dL (32.0-36.0); Mean Corpuscular Volume 81.6 fL (80.0-100.0); Monocytes % (auto) 6.9 % (0.0-12.0); Neutrophils % (auto) 80.1 % (37.0-80.0); Red Blood Cells 4.12 10^6/uL (4.5-5.90); Red Cell Distribution Width 24.1 % (11.8-14.3)
[2023-07-27] MEDS ORDERED: ERGOCALCIFEROL 50,000 UNIT(1.25MG) CAP PO SCH (12:45)
[2023-07-27] MEDS ORDERED: SODIUM CHLORIDE 0.9% 1,000 ML IV SCH (13:45)
[2023-07-27] MEDS ORDERED: DEXTROSE (50%) 50ML SYRG IV PRN (13:45)
[2023-07-27] MEDS ORDERED: LORazepam 2MG/ML-1ML VIAL IV PRN (13:45)
[2023-07-27] MEDS ORDERED: DOCUSATE SOD 100 MG CAP PO PRN (13:45)
[2023-07-27] MEDS: ENOXAPARIN SOD 40 MG/0.4 ML SYRINGE SC SCH (14:36)
[2023-07-27 14:59] LABS: COVID19 ANTIGEN SOFIA FIA NEGATIVE (NEGATIVE)
[2023-07-27 15:00] LABS: Rapid Influenza A Negative (Negative); Rapid Influenza B Negative (Negative)
[2023-07-27 15:05] LABS: Amphetamine Screen, Urine Neg (NEGATIVE); Barbiturate Scree,Urine Neg (NEGATIVE); Benzodiazephine Screen, Urine Neg (NEGATIVE); Cannabinoid Screen, Urine Neg (NEGATIVE); Cocaine Screen, Urine Neg (NEGATIVE); Opiate Scree,Urine Pos (NEGATIVE); Phencyclidine Screen, Urine Neg (NEGATIVE)
[2023-07-27] MEDS: LIDOCAINE 1% (LOCAL ANESTH.) PF 5ml SDV ID ONE (15:38)
[2023-07-27 17:00] VITALS: BP 117/72; PULSE 85; RESP 16; TEMP 99.5; O2SAT 98
[2023-07-27] MEDS: InsuLIN REG 1unit/0.01ml Soln (100units/ml) SC SCH (17:00)
[2023-07-27 17:25] VITALS: BP 117/72; PULSE 85; RESP 16; TEMP 99.5; O2SAT 98
[2023-07-27] MEDS: ACCU-CHEK COMFORT CURVE STRIP VI SCH (17:27)
[2023-07-27 17:31] VITALS: BP 117/72; PULSE 84; PULSE 85; RESP 18; TEMP 98.6; O2SAT 96
[2023-07-27] MEDS: MORPHINE SULFATE INJ 2 MG/ml SYRG IV PRN (17:53)
[2023-07-27] MEDS: FUROSEMIDE 40 MG/4 ML VIAL IV SCH (17:54)
[2023-07-27] MEDS: ONDANSETRON HCL 4 MG/2 ML VIAL IV PRN (19:02)
[2023-07-27 20:00] VITALS: PULSE 81; RESP 18; O2SAT 97
[2023-07-27] MEDS: PRAVASTATIN SODIUM 20 MG TAB PO SCH (21:59)
[2023-07-27] MEDS: QUEtiapine FUMARATE 25 MG TAB PO SCH (21:59)
[2023-07-27 22:00] VITALS: BP 105/64; PULSE 81; RESP 18; TEMP 98.9; O2SAT 97
[2023-07-27] MEDS: amLODIPine BESYLATE 5 MG TAB PO SCH (22:00)
[2023-07-27] MEDS ORDERED: GEMFIBROZIL 600 MG TAB PO SCH (22:00)
[2023-07-27] MEDS: SODIUM CHLOR 0.9% PF (SALINE LOCK) 10ML VIAL/SYR IV SCH (22:01)
[2023-07-28] MEDS: levETIRAcetam 1000 mg/100ml 100 ML IV ONE ×2 (00:30→13:00)
[2023-07-28 05:00] VITALS: BP 102/59; PULSE 82; RESP 18; TEMP 98.1; O2SAT 94
[2023-07-28 05:27] LABS: Basophils # (auto) 0 10 ^3/uL (0-0.2); Lymphocytes # (auto) 1.4 10 ^3/uL (0.4-5.4); Mean Corpuscular Hgb Conc. 30.3 g/dL (32.0-36.0); Monocytes # (auto) 0.3 10 ^3/uL (0-1.3); Neutrophils # (auto) 1.7 10 ^3/uL (1.6-8.6); Red Cell Distribution Width 24.1 % (11.8-14.3); White Blood Cell 3.5 10^3/uL (4.4-10.8)
[2023-07-28 05:29] LABS: Basophils % (auto) 0.5 % (0.0-2.0); Eosinophils # (auto) 0 10 ^3/uL (0-0.8); Eosinophils % (auto) 1.4 % (0.0-7.0); Hematocrit 29.7 % (41.0-53.0); Lymphocytes % (auto) 40.2 % (10.0-50.0); Mean Corpuscular Hemoglobin 24.6 pg (28.0-32.0); Mean Corpuscular Volume 81.3 fL (80.0-100.0); Monocytes % (auto) 8.5 % (0.0-12.0); Neutrophils % (auto) 49.4 % (37.0-80.0); Red Blood Cells 3.66 10^6/uL (4.5-5.90)
[2023-07-28 06:19] LABS: Alanine Aminotransferase 17 U/L (7-40); Albumin 3.7 g/dL (3.2-4.8); Alkaline Phosphatase 124 U/L (46-116); Anion Gap 6 (5-15); Aspartate Aminotransferase 21 U/L (13-40); BUN/Creatinine Ratio 10.8 (10.0-20.0); Bilirubin, Total 0.2 mg/dL (0.2-1.0); Blood Urea Nitrogen 7 mg/dL (9-23); Calcium 8.7 mg/dL (8.5-10.1); Carbon Dioxide 25 mmol/L (20-30); Chloride 108 mmol/L (98-107); Glucose 74 mg/dL (74-106); Potassium 3.5 mmol/L (3.5-5.1); Sodium 139 mmol/L (136-145); Total Protein 5.7 g/dL (5.7-8.2)
[2023-07-28 08:00] VITALS: PULSE 76; RESP 16; O2SAT 98
[2023-07-28 08:06] LABS: RPR Non Reactive (Non Reactive)
[2023-07-28 08:50] VITALS: BP 102/63; PULSE 71; RESP 18; TEMP 98; O2SAT 100
[2023-07-28] MEDS ORDERED: levETIRAcetam 1000 mg/100ml 100 ML IV SCH ×2 (10:00→22:00)
[2023-07-28] MEDS: PANTOPRAZOLE 40 MG/10 ML VIAL INJ IV SCH (10:55)
[2023-07-28] MEDS: MULTIPLE VITAMIN TAB PO SCH (10:56)
[2023-07-28] MEDS: TAMSULOSIN HYDROCHLORIDE 0.4 MG CAP PO SCH (10:56)
[2023-07-28 11:29] LABS: Blood Alcohol < 3.0 mg/dL (<10)
[2023-07-28 11:31] LABS: % Iron Saturation 12.3 % (20-55)
[2023-07-28 11:34] LABS: Ferritin 100.9 ng/mL (22-322)
[2023-07-28] MEDS ORDERED: TPN PER PHARMACY 0 ML IV SCH (12:00)
[2023-07-28] MEDS ORDERED: levETIRAcetam 500 mg/100ml 100 ML IV SCH ×2 (12:00→22:00)
[2023-07-28 12:31] LABS: Thyroid Stimulating Hormone 0.47 uIU/mL (0.55-4.78)
[2023-07-28 12:40] VITALS: BP 108/63; PULSE 87; RESP 18; TEMP 98.1; O2SAT 98
[2023-07-28] MEDS ORDERED: levETIRAcetam 500 mg/100ml 100 ML IV ONE (12:47)
[2023-07-28] MEDS: FUROSEMIDE 20 MG/2 ML VIAL IV ONE (14:59)
[2023-07-28 16:25] VITALS: BP 110/67; PULSE 94; RESP 18; TEMP 98.2; O2SAT 98
[2023-07-28] MEDS: POTASSIUM CHL 20MEQ/100ML 100 ML IV ONE (17:52)
[2023-07-28 18:18] VITALS: BP 124/76; PULSE 64; RESP 18
[2023-07-28] MEDS ORDERED: AMINO ACID INFUSION IN D10W 1,000 ML IV SCH (20:00)
[2023-07-29] MEDS ORDERED: FUROSEMIDE 20 MG/2 ML VIAL IV SCH (10:00)
[2023-07-30 11:00] LABS: Folate (Folic Acid) > 24.00 ng/mL (>5.38)
== END 2023-07-28 18:40 | disposition home or self-care (01) | DRG 53 ==
LOC: ER 09:16 → EDUNIT# 09:16 → TELE 14:05 → TELE-CENTR 17:28
PROVIDERS: ADMIT Nurse Practitioner Family; ATTEND Nurse Practitioner Family
PROC: 02HV33Z Insertion of Infusion Device into Superior Vena Cava, Percutaneous Approach (ICD-10-PCS; principal; 2023-07-27)
PROC: B548ZZA Ultrasonography of Superior Vena Cava, Guidance (ICD-10-PCS; 2023-07-27)
DX: G40.909 Epilepsy, unspecified, not intractable, without status epilepticus (principal); T82.524A Displacement of infusion catheter, initial encounter; E11.9 Type 2 diabetes mellitus without complications; E78.5 Hyperlipidemia, unspecified; D64.9 Anemia, unspecified; E66.9 Obesity, unspecified; F41.9 Anxiety disorder, unspecified; R07.89 Other chest pain; J98.11 Atelectasis; L80 Vitiligo; I10 Essential (primary) hypertension; Z20.822 Contact with and (suspected) exposure to COVID-19; J45.909 Unspecified asthma, uncomplicated; K21.9 Gastro-esophageal reflux disease without esophagitis; Y82.8 Other medical devices associated with adverse incidents; I25.2 Old myocardial infarction; Y92.098 Other place in other non-institutional residence as the place of occurrence of the external cause; Z86.73 Personal history of transient ischemic attack (TIA), and cerebral infarction without residual deficits; Z68.30 Body mass index [BMI] 30.0-30.9, adult; Z79.4 Long term (current) use of insulin; Z79.899 Other long term (current) drug therapy; Z90.3 Acquired absence of stomach [part of]; Z98.84 Bariatric surgery status; Z82.3 Family history of stroke; Z83.3 Family history of diabetes mellitus; Z82.49 Family history of ischemic heart disease and other diseases of the circulatory system
CPT/HCPCS: 36415; 36569; 70450; 70551; 71045; 80053; 80307; 80320; 81001; 82306; 82607; 82728; 82746; 82962; 83010; 83540; 83550; 83615; 83735; 83880; 84100; 84443; 84484; 85025; 85045; 85610; 85730; 86592; 87040; 87426; 87804; 93005; 93886; 97163; C9113; G0378; J2405; J3480